=== PATIENT | female | born 1990 | race African-American/Black ===

== ENCOUNTER 2024-03-22 04:46 | Emergency (ER) | payer SELFPAY ==
[~2024-03-22] VITALS: Ht 167.6 cm; Wt 90.0 kg
[2024-03-22 04:56] VITALS: BP 162/94; TEMP 98.2; O2SAT 99
[2024-03-22 05:51] VITALS: PULSE 92; RESP 18
[2024-03-22] MEDS ORDERED: ACETAMINOPHEN 325MG TABLET PO ONE (06:00)
[2024-03-22 06:37] LABS: CHLORIDE 110 mEq/L (98-107); POTASSIUM 3.8 mEq/L (3.5-5.1); SODIUM 143 mEq/L (136-145)
[2024-03-22 06:38] LABS: CALCIUM 9.2 mg/dL (8.7-10.4); CARBON DIOXIDE 25 mEq/L (21-32)
[2024-03-22 06:43] LABS: GLUCOSE 105 mg/dL (70-105); UREA NITROGEN BLOOD 8 mg/dL (9-23)
[2024-03-22 06:45] LABS: ALANINE AMINOTRANSFERASE 25 IU/L (10-49); ALBUMIN 4.6 g/dL (3.2-4.8); ASPARTATE AMINOTRANSFERASE 33 IU/L (<34); BILIRUBIN TOTAL 0.3 mg/dL (0.1-1.0); PROTEIN TOTAL 7.9 g/dL (6.0-8.3)
[2024-03-22 06:50] LABS: BASOPHILS % 0.4 % (0.0-2.0); EOSINOPHILS % 0.3 % (0.0-5.0); HEMATOCRIT. 37.8 % (36.0-48.0); HEMOGLOBIN. 12.6 g/dL (12.0-16.0); LYMPHOCYTES % 14.9 % (20.0-50.0); MEAN CORPUSCULAR HEMOGLOBIN 28.5 pg (28.0-32.0); MEAN CORPUSCULAR HGB CONC 33.2 g/dL (31.0-37.0); MEAN CORPUSCULAR VOLUME 85.8 fL (81.0-99.0); MEAN PLATELET VOLUME 8.5 fl (7.4-10.4); MONOCYTES % 6.3 % (2.0-8.0); NEUTROPHILS % 78.1 % (40.0-76.0); PLATELET 321 x1000/uL (130-400); RED BLOOD CELL COUNT 4.41 mill/uL (4.2-5.4); RED CELL DISTRIBUTION WIDTH 16.1 % (11.6-14.6); WHITE BLOOD COUNT 10.1 x1000/uL (4.5-11.0)
[2024-03-22 06:54] LABS: HCG SCREEN NEGATIVE
[2024-03-22] MEDS: TETANUS, DIPHTHERIA, PERTUSSIS VAC/PF 0.5ML (>10YR OLD) IM ONE (07:09)
[2024-03-22] MEDS: ACETAMINOPHEN 325MG TABLET PO NR (07:10)
[2024-03-22] MEDS ORDERED: IOHEXOL-300 100 ML BOTTLE ONE (09:49)
== END 2024-03-22 11:08 | disposition home or self-care (01) ==
LOC: ER 04:46
DX: S60.812A Abrasion of left wrist, initial encounter (principal); J45.909 Unspecified asthma, uncomplicated; R07.81 Pleurodynia; M25.532 Pain in left wrist; V49.49XA Driver injured in collision with other motor vehicles in traffic accident, initial encounter; Y93.89 Activity, other specified; Y92.89 Other specified places as the place of occurrence of the external cause; Y99.8 Other external cause status
CPT/HCPCS: 99291; 71260; 80053; 81025; 84703; 85025; 36415; 71045; 73110; 74177; 90715; 29125; 90471; Q9967

== ENCOUNTER 2024-04-09 15:30 | Emergency (ER) | payer SELFPAY ==
[~2024-04-09] VITALS: Ht 170.2 cm; Wt 102.0 kg
[2024-04-09 15:39] VITALS: O2SAT 99
[2024-04-09 17:16] VITALS: BP 104/66; PULSE 77; RESP 18; TEMP 36.78072; O2SAT 99
== END 2024-04-09 17:18 | disposition home or self-care (01) ==
LOC: ER 15:30
DX: Z02.79 Encounter for issue of other medical certificate (principal); J45.909 Unspecified asthma, uncomplicated
CPT/HCPCS: 99281